=== PATIENT | male | born 1985 | race Caucasian/White ===

== ENCOUNTER 2018-03-23 11:14 | Inpatient (IN) | payer OTHER ==
[2018-03-23 12:29] VITALS: BMI 27.4
--- NOTE | 2018-03-23 15:23 | HP ---
COWS - Scale Resting Pulse: 0= [place] 80 or Below Sweatin=Flushed/Facial Moisture Restless Observation: 3= Extraneous Movement Pupil Size: 2= Moderately Dilated Bone or Joint Aches: 2= Severe Diffuse Aches Runny Nose/ Eye Tearin= Runny Nose/Eyes GI Upset > 30mins: 3= Vomiting/Diarrhea Tremor Observation: 2= Slight Tremor Visible Yawning Observation: 2= >3x During Session Anxiety or Irritability: 2=Irritable/Anxious Goose Flesh Skin: 0=Smooth Skin COWS Score: 20 Admission ROS S - HPI Chief Complaint: i need help to stop using heroin,cocaine,marijuana Allergies/Adverse Reactions: Allergies Allergy/AdvReac Type Severity Reaction Status Date / Time No Known Allergies Allergy Verified 03/23/18 12:23 History of Present Illness: this 32 years old mla ewi[facility] heroin,cocaine and marijuana dependence,seeking detox,withdrawal symptom, last detox 2017 [facility] on subxone 8 mgs/2 mgs suboxone tid last taken 03/01 did not want to be on suboxone and had letter from subscriber to so nicotine dependence anxiety insomnia longest period of sobriety 3 years Exam Limitations: No Limitations - Ebola screening Have you traveled outside of the country in the last 21 days: No Have you had contact with anyone from an Ebola affected area: No Have you been sick,other than usual withdrawal symptoms: No Do you have a fever: No - Review of Systems Constitutional: Chills, Loss of Appetite, Malaise, Night Sweats, Changes in sleep, Weakness, Unintentional Wgt. Loss EENT: reports: Tearing, Nose Congestion Respiratory: reports: No Symptoms reported Cardiac: reports: No Symptoms Reported, Palpitations GI: reports: Diarrhea, Nausea, Vomiting, Abdominal cramping Musculoskeletal: reports: No Symptoms Reported Integumentary: reports: Dryness Neuro: reports: Headache, Tremors Endocrine: reports: No Symptoms Reported Hematology: reports: No Symptoms Reported Psychiatric: reports: No Sypmtoms Reported, Judgement Intact, Mood/Affect Appropiate, Orientated x3, Anxious (insomnia) Patient History - Patient Medical History Hx Anemia: No Hx Asthma: No Hx Chronic Obstructive Pulmonary Disease (COPD): No Hx Cancer: No Hx Cardiac Disorders: No Hx Congestive Heart Failure: No Hx Hypertension: No Hx Hypercholesterolemia: No Hx Pacemaker: No HX Cerebrovascular Accident: No Hx Seizures: No Hx Dementia: No Hx Diabetes: No Hx Gastrointestinal Disorders: No Hx Liver Disease: No Hx Genitourinary Disorders: No Hx Sexually Transmitted Disorders: No Hx Renal Disease (ESRD): No Hx Thyroid Disease: No Hx Human Immunodeficiency Virus (HIV): No (o6/18 negative) Hx Hepatitis C: No Hx Depression: No Hx Suicide Attempt: No Hx Bipolar Disorder: No Hx Schizophrenia: No Other Medical History: anxiety,insomnia,no suicidal,no homicidal - Patient Surgical History Past Surgical History: No Hx Neurologic Surgery: No Hx Cataract Extraction: No Hx Cardiac Surgery: No Hx Lung Surgery: No Hx Breast Surgery: No Hx Breast Biopsy: No Hx Abdominal Surgery: No Hx Appendectomy: No Hx Cholecystectomy: No Hx Genitourinary Surgery: No Hx Section: No Hx Orthopedic Surgery: No Anesthesia Reaction: No - PPD History Previous Implant?: No Documented Results: Negative w/o proof Implanted On Prior R Admission?: No PPD to be Administered?: Yes - Smoking Cessation Smoking history: Current every day smoker Have you smoked in the past 12 months: No Aproximately how many cigarettes per day: 10 Hx Chewing Tobacco Use: No Initiated information on smoking cessation: Yes 'Breaking Loose' booklet given: 03/23/18 - Substance & Tx. History Hx Substance Use: Yes Substance Use Type: Cocaine, Heroin, Marijuana Hx Substance Use Treatment: Yes (last detox [facility] in 2017) - Substances Abused Heroin Route: Inhalation Frequency: Daily Amount used: 8BAGS- Age of first use: 20 Date of Last Use: 03/23/18 Cocaine Route: Inhalation Frequency: 1-2 times per week Amount used: 3BAGS- $60 Age of first use: 20 Date of Last Use: 03/22/18 Marijuana/Hashish Route: Smoking Frequency: 1-2 times per week Amount used: 20$ Age of first use: 14 Date of Last Use: 03/15/18 Family Disease History - Family Disease History Family History: Denies Admission Physical Exam S - Vital Signs Vital Signs: Vital Signs - 24 hr 03/23/18 12:22 Temperature 98.3 F Pulse Rate 73 Respiratory 20 Rate Blood Pressure 125/73 - Physical General Appearance: Yes: Moderate Distress, Tremorous, Irritable, Sweating, Anxious HEENTM: Yes: Normal ENT Inspection, [place], Pharynx Normal Respiratory: Yes: Lungs Clear, Normal Breath Sounds, No Respiratory Distress Neck: Yes: Within Normal Limits, Supple, Trachea in good position Breast: Yes: Within Normal Limits Cardiology: Yes: Within Normal Limits, Regular Rhythm, Regular Rate, S1, S2 Abdominal: Yes: Within Normal Limits, Normal Bowel Sounds, Non Tender, Flat, Soft Genitourinary: Yes: Within Normal Limits Back: Yes: Within Normal Limits, Normal Inspection, Muscle Spasm Musculoskeletal: Yes: Back pain, Joint Stiffness, Muscle Pain Extremities: Yes: Normal Range of Motion, Tremors, Other (carpal tunnel left wrist wearing the splint) Neurological: Yes: guest services agent II-XII NML intact, Alert, Motor Strength 5/5, Normal Mood /Affect Integumentary: Yes: Dry Lymphatic: Yes: Within Normal Limits - Diagnostic (1) Opioid dependence with withdrawal Current Visit: Yes Status: Acute (2) Cocaine dependence Current Visit: Yes Status: Chronic (3) Cannabis dependence Current Visit: Yes Status: Chronic (4) Carpal tunnel syndrome, left Current Visit: Yes Status: Chronic (5) Weight loss Current Visit: Yes Status: Chronic (6) Anxiety Current Visit: Yes Status: Chronic (7) Insomnia Current Visit: Yes Status: Chronic (8) Nicotine dependence Current Visit: Yes Status: Chronic Cleared for Admission [facility] - Detox or Rehab [facility] Level of Care: Medically Managed Detox Regimen/Protocol: Methadone [facility] Breath Alcohol Content Breath Alcohol Content: 0 Urine Drug Screen - Results Drug Screen Negative: No Urine Drug Screen Results: MARANDA-Cocaine, OPI-Opiates
[2018-03-23] MEDS ORDERED: LOPERAMIDE HCL 2 MG CAPSULE PO PRN (15:33)
[2018-03-23] MEDS ORDERED: IBUPROFEN 400 MG TABLET (FP) PO PRN (15:33)
[2018-03-23] MEDS ORDERED: METHADONE HCL 10 MG TABLET (FOR DETOX USE ONLY) PO ONE ×2 (15:33→23:00)
[2018-03-23] MEDS ORDERED: MAGNESIUM CITRATE 300 ML BOTTLE PO PRN (15:33)
[2018-03-23] MEDS ORDERED: ACETAMINOPHEN 325 MG TABLET (FP) PO PRN (15:33)
[2018-03-23] MEDS ORDERED: MENTHOL/PHENOL 1 EACH UD MM PRN (15:33)
[2018-03-23] MEDS ORDERED: guaiFENesin/D-METHORPHAN HB 10 ML UNIT-DOSE CUPS PO PRN (15:33)
[2018-03-23] MEDS ORDERED: hydrOXYzine PAMOATE 25 MG CAPSULE (FP) PO PRN (15:33)
[2018-03-23] MEDS ORDERED: MAGNESIUM HYDROX 2400MG/30ML ORAL SUSPENSION 30 ML CUP PO PRN (15:33)
[2018-03-23] MEDS ORDERED: NICOTINE POLACRILEX 2 MG GUM BUC PRN (15:33)
[2018-03-23] MEDS ORDERED: MAG HYDROX/AL HYDROX/SIMETH 30 ML UNIT-DOSE CUP PO PRN (15:33)
[2018-03-23] MEDS ORDERED: P-EPHED 60MG/TRIPROLIDI 2.5MG TABLET PO PRN (15:33)
[2018-03-23] MEDS: diazePAM 5 MG TABLET PO PRN ×2 (17:45→23:07)
[2018-03-23] MEDS: NICOTINE 21 MG/24 HOURS TOPICAL PATCH TD SCH (17:49)
[2018-03-23] MEDS ORDERED: MELATONIN 5 MG TABLETS PO PRN (22:00)
[2018-03-23 22:03] LABS: URINE APPEARANCE TURBID; URINE BILIRUBIN NEGATIVE (<2.0 mg/dL); URINE COLOR AMBER; URINE GLUCOSE (UA) NEGATIVE (NEGATIVE); URINE KETONE NEGATIVE (NEGATIVE); URINE LEUK ESTERASE NEGATIVE (NEGATIVE); URINE NITRITE NEGATIVE (NEGATIVE); URINE PROTEIN NEGATIVE (NEGATIVE); URINE UROBILINOGEN NEGATIVE mg/dL (0.2-1.0)
[2018-03-23] MEDS: THIAMINE HCL 100 MG TABLET (FP) PO SCH (23:03)
[2018-03-23] MEDS: cloNIDine HCL 0.1 MG TABLET PO SCH (23:03)
[2018-03-23] MEDS: CYCLOBENZAPRINE HCL 10 MG TABLET (FP) PO PRN (23:04)
--- NOTE | 2018-03-24 08:45 | EKG ---
Test Reason : Blood Pressure : / mmHG Vent. Rate : 070 BPM Atrial Rate : 070 BPM P-R Int : 134 ms QRS Dur : 096 ms QT Int : 390 ms P-R-T Axes : 043 069 038 degrees QTc Int : 421 ms NORMAL SINUS RHYTHM MINIMAL VOLTAGE CRITERIA FOR LVH, MAY BE NORMAL VARIANT NO PREVIOUS ECGS AVAILABLE Confirmed by GORDO CARROLL MD ([id number]) on 03/24/2018 8:45:07 AM Referred By: Confirmed By:GORDO CARROLL MD
[2018-03-24] MEDS ORDERED: METHADONE HCL 10 MG TABLET (FOR DETOX USE ONLY) PO ONE (10:00)
[2018-03-24] MEDS: PRENATAL VITAMINS W/ FOLIC ACID TABLET (FP) PO SCH (10:15)
[2018-03-24] MEDS: diazePAM 5 MG TABLET PO PRN ×2 (10:15→22:22)
[2018-03-24] MEDS: NICOTINE 21 MG/24 HOURS TOPICAL PATCH TD SCH (10:16)
[2018-03-24] MEDS: cloNIDine HCL 0.1 MG TABLET PO SCH ×2 (10:16→22:19)
[2018-03-24] MEDS: CYCLOBENZAPRINE HCL 10 MG TABLET (FP) PO PRN (10:16)
[2018-03-24 10:47] LABS: HEMOGLOBIN 13.8 GM/dL (11.7-16.9); MCH 31.9 pg (25.7-33.7); MCHC 34.5 g/dl (32.0-35.9); MEAN CELL VOLUME 92.6 fl (80-96); MEAN PLT VOLUME 8.2 fl (7.5-11.1); PLATELET COUNT 244 K/MM3 (134-434); RBC 4.32 M/mm3 (4.00-5.60); RDW 12.7 % (11.9-15.9); WHITE BLOOD COUNT 4.8 K/mm3 (4.0-10.0)
[2018-03-24 10:57] LABS: CHLORIDE 105 mmol/L (98-107); POTASSIUM 4.4 mmol/L (3.5-5.1); SODIUM 144 mmol/L (136-145)
[2018-03-24 11:09] LABS: ALBUMIN 3.8 g/dl (3.4-5.0); ALK PHOS 87 U/L (45-117); ANION GAP 6 (8-16); BILIRUBIN,TOTAL 0.3 mg/dL (0.2-1.0); BLOOD UREA NITROGEN 24 mg/dL (7-18); CALCIUM 8.7 mg/dL (8.5-10.1); CO2 33 mmol/L (21-32); CREATININE 1.5 mg/dL (0.7-1.3); GLUCOSE,RANDOM 121 mg/dL (74-106); SGOT/AST 24 U/L (15-37); SGPT/ALT 30 U/L (12-78); TOT PROT 6.9 g/dl (6.4-8.2)
--- NOTE | 2018-03-24 14:20 | PN ---
BHS COWS - Scale Resting Pulse: 1= [place] 81-100 Sweatin= Chills/Flushing Restless Observation: 0= Sits Still Pupil Size: 0= Normal to Room Light Bone or Joint Aches: 1= Mild Discomfort Runny Nose/ Eye Tearin= Nasal Congestion GI Upset > 30mins: 1= Stomach Cramp Tremor Observation of Outstretched Hands: 0= None Yawning Observation: 0= None Anxiety or Irritability: 0= None Goose Flesh Skin: 0=Smooth Skin COWS Score: 5 BHS Progress Note (SOAP) Subjective: pt lying in bed, states has no complaints, is doing well Objective: 03/24/18 14:19 Vital Signs - 24 hr 03/23/18 03/23/18 03/24/18 17:31 22:42 00:30 Temperature 98.2 F 97.9 F Pulse Rate 66 72 Respiratory 18 18 18 Rate Blood Pressure 122/68 112/88 03/24/18 03/24/18 03/24/18 03:30 06:25 10:02 Temperature 97.5 F L 98.2 F Pulse Rate 116 H 77 Respiratory 18 18 18 Rate Blood Pressure 131/62 126/80 Laboratory Tests 03/23/18 03/24/18 03/24/18 17:12 06:00 06:00 WBC 4.8 RBC 4.32 Hgb 13.8 Hct 40.0 MCV 92.6 MCH 31.9 MCHC 34.5 RDW 12.7 Plt Count 244 MPV 8.2 Sodium 144 Potassium 4.4 Chloride 105 Carbon Dioxide 33 H Anion Gap 6 L BUN 24 H Creatinine 1.5 H Creat Clearance w eGFR 53.90 Random Glucose 121 H Calcium 8.7 Total Bilirubin 0.3 AST 24 ALT 30 Alkaline Phosphatase 87 Total Protein 6.9 Albumin 3.8 Urine Color Brittany Urine Appearance Turbid Urine pH 5.0 Ur Specific [place] 1.027 Urine Protein Negative Urine Glucose (UA) Negative Urine Ketones Negative Urine Blood Negative Urine Nitrite Negative Urine Bilirubin Negative Urine Urobilinogen Negative Ur Leukocyte Esterase Negative RPR Titer 03/24/18 06:00 WBC RBC Hgb Hct MCV MCH MCHC RDW Plt Count MPV Sodium Potassium Chloride Carbon Dioxide Anion Gap BUN Creatinine Creat Clearance w eGFR Random Glucose Calcium Total Bilirubin AST ALT Alkaline Phosphatase Total Protein Albumin Urine Color Urine Appearance Urine pH Ur Specific [place] Urine Protein Urine Glucose (UA) Urine Ketones Urine Blood Urine Nitrite Urine Bilirubin Urine Urobilinogen Ur Leukocyte Esterase RPR Titer Nonreactive VS nl decreased GFR Assessment: 03/24/18 14:20 32 years old male h/o heroin,cocaine and marijuana dependence, here for opioid detox,withdrawal symptom, Plan: continue detox protocol
--- NOTE | 2018-03-24 15:59 | CONSULT ---
[facility] Psychiatric Consult - Data Date of interview: 03/24/18 Admission source: [facility] Identifying data: Patient is a 32 year old single male, father of one, unemployed, domiciled, and supported by food stamps. This is one of multiple admissions for patient. Pt. admitted to for opiate dependence. Substance Abuse History: - Smoking Cessation. Smoking history: Current every day smoker. Have you smoked in the past 12 months: No. Aproximately how many cigarettes per day: 10. Hx Chewing Tobacco Use: No. Initiated information on smoking cessation: Yes. 'Breaking Loose' booklet given: 03/23/18. - Substance & Tx. History. Hx Substance Use: Yes. Substance Use Type: Cocaine, Heroin, Marijuana. Hx Substance Use Treatment: Yes (last detox [facility] in 2017). - Substances Abused. Heroin. Route: Inhalation. Frequency: Daily. Amount used: 8BAGS-. Age of first use: 20. Date of Last Use: 03/23/18. Cocaine. Route: Inhalation. Frequency: 1-2 times per week. Amount used: 3BAGS- $60. Age of first use: 20. Date of Last Use: 03/22/18. Marijuana/Hashish. Route : Smoking. Frequency: 1-2 times per week. Amount used: 20$. Age of first use : 14. Date of Last Use: 03/15/18 Psychiatric History: Patient denies h/o psychiatric hospitalization, outpatient care, and suicide attempt. Physical/Sexual Abuse/Trauma History: Denies. Mental Status Exam - Mental Status Exam Alert and Oriented to: Time, Place, Person Cognitive Function: Good Patient Appearance: Well Groomed Mood: Withdrawn Affect: Mood Congruent Patient Behavior: Guarded Speech Pattern: Appropriate Voice Loudness: Moderately Soft/Quiet Thought Process: Goal Oriented Thought Disorder: Not Present Hallucinations: Denies Suicidal Ideation: Denies Homicidal Ideation: Denies Insight/Judgement: Poor Sleep: Fair Appetite: Good Muscle strength/Tone: Normal Gait/Station: Normal Psychiatric Findings - Problem List ([place] 1, 2,3) (1) Cocaine dependence Current Visit: Yes Status: Acute (2) Nicotine dependence Current Visit: Yes Status: Acute (3) Opioid dependence with withdrawal Current Visit: Yes Status: Acute (4) Substance induced mood disorder Current Visit: Yes Status: Acute - Initial Treatment Plan Initial Treatment Plan: Psychoeducation provided. Detoxification in progres. Observation.
[2018-03-24] MEDS: THIAMINE HCL 100 MG TABLET (FP) PO SCH (22:19)
[2018-03-25] MEDS ORDERED: METHADONE HCL 5 MG TABLET (FOR DETOX USE ONLY) PO ONE (10:00)
[2018-03-25] MEDS: PRENATAL VITAMINS W/ FOLIC ACID TABLET (FP) PO SCH (10:20)
[2018-03-25] MEDS: cloNIDine HCL 0.1 MG TABLET PO SCH ×2 (10:20→22:38)
[2018-03-25] MEDS: NICOTINE 21 MG/24 HOURS TOPICAL PATCH TD SCH (10:21)
[2018-03-25] MEDS: diazePAM 5 MG TABLET PO PRN ×3 (10:23→22:39)
[2018-03-25] MEDS: THIAMINE HCL 100 MG TABLET (FP) PO SCH (22:39)
[2018-03-25] MEDS: CYCLOBENZAPRINE HCL 10 MG TABLET (FP) PO PRN (22:39)
--- NOTE | 2018-03-25 23:20 | PN ---
BHS COWS - Scale Resting Pulse: 0= [place] 80 or Below Sweatin=Flushed/Facial Moisture Restless Observation: 1= Difficult to Sit Still BHS Progress Note (SOAP) Subjective: diarrhea Sweats Shakes Objective: A & O x 3 Sleeping, arousable to verbal stimuli No acute distress noted Assessment: withdrawal sx Plan: continue detox
[2018-03-26] MEDS ORDERED: METHADONE HCL 5 MG TABLET (FOR DETOX USE ONLY) PO ONE (10:00)
[2018-03-26] MEDS: PRENATAL VITAMINS W/ FOLIC ACID TABLET (FP) PO SCH (10:44)
[2018-03-26] MEDS: cloNIDine HCL 0.1 MG TABLET PO SCH ×2 (10:44→23:02)
[2018-03-26] MEDS: diazePAM 5 MG TABLET PO PRN (10:44)
[2018-03-26] MEDS: NICOTINE 21 MG/24 HOURS TOPICAL PATCH TD SCH (11:12)
--- NOTE | 2018-03-26 12:52 | PN ---
BHS COWS - Scale Resting Pulse: 0= [place] 80 or Below Sweatin=Flushed/Facial Moisture Restless Observation: 1= Difficult to Sit Still Pupil Size: 0= Normal to Room Light Bone or Joint Aches: 2= Severe Diffuse Aches Runny Nose/ Eye Tearin= Nasal Congestion GI Upset > 30mins: 2= Nausea/Diarrhea Tremor Observation of Outstretched Hands: 2= Slight Tremor Visible Yawning Observation: 1= 1-2x During Session Anxiety or Irritability: 2=Irritable/Anxious Goose Flesh Skin: 0=Smooth Skin COWS Score: 13 BHS Progress Note (SOAP) Subjective: Sweats, shakes, interrupted sleep, abdominal discomfort Objective: 03/26/18 12:51 Vital Signs - 8 hr 03/26/18 03/26/18 06:00 10:34 Temperature 97.5 F L 97.5 F L Pulse Rate 56 L 80 Respiratory 16 16 Rate Blood Pressure 120/69 127/72 Laboratory Last Values WBC 4.8 K/mm3 (4.0-10.0) 03/24/18 06:00 RBC 4.32 M/mm3 (4.00-5.60) 03/24/18 06:00 Hgb 13.8 GM/dL (11.7-16.9) 03/24/18 06:00 Hct 40.0 % (35.4-49) 03/24/18 06:00 MCV 92.6 fl (80-96) 03/24/18 06:00 MCH 31.9 pg (25.7-33.7) 03/24/18 06:00 MCHC 34.5 g/dl (32.0-35.9) 03/24/18 06:00 RDW 12.7 % (11.9-15.9) 03/24/18 06:00 Plt Count 244 K/MM3 (134-434) 03/24/18 06:00 MPV 8.2 fl (7.5-11.1) 03/24/18 06:00 Sodium 144 mmol/L (136-145) 03/24/18 06:00 Potassium 4.4 mmol/L (3.5-5.1) 03/24/18 06:00 Chloride 105 mmol/L (98-107) 03/24/18 06:00 Carbon Dioxide 33 mmol/L (21-32) H 03/24/18 06:00 Anion Gap 6 (8-16) L 03/24/18 06:00 BUN 24 mg/dL (7-18) H 03/24/18 06:00 Creatinine 1.5 mg/dL (0.7-1.3) H 03/24/18 06:00 Creat Clearance w eGFR 53.90 (>60) 03/24/18 06:00 Random Glucose 121 mg/dL (74-106) H 03/24/18 06:00 Calcium 8.7 mg/dL (8.5-10.1) 03/24/18 06:00 Total Bilirubin 0.3 mg/dL (0.2-1.0) 03/24/18 06:00 AST 24 U/L (15-37) 03/24/18 06:00 ALT 30 U/L (12-78) 03/24/18 06:00 Alkaline Phosphatase 87 U/L (45-117) 03/24/18 06:00 Total Protein 6.9 g/dl (6.4-8.2) 03/24/18 06:00 Albumin 3.8 g/dl (3.4-5.0) 03/24/18 06:00 Urine Color Brittany 03/23/18 17:12 Urine Appearance Turbid 03/23/18 17:12 Urine pH 5.0 (5.0-8.0) 03/23/18 17:12 Ur Specific [place] 1.027 (1.001-1.035) 03/23/18 17:12 Urine Protein Negative (NEGATIVE) 03/23/18 17:12 Urine Glucose (UA) Negative (NEGATIVE) 03/23/18 17:12 Urine Ketones Negative (NEGATIVE) 03/23/18 17:12 Urine Blood Negative (NEGATIVE) 03/23/18 17:12 Urine Nitrite Negative (NEGATIVE) 03/23/18 17:12 Urine Bilirubin Negative (<2.0 mg/dL) 03/23/18 17:12 Urine Urobilinogen Negative mg/dL (0.2-1.0) 03/23/18 17:12 Ur Leukocyte Esterase Negative (NEGATIVE) 03/23/18 17:12 RPR Titer Nonreactive (NONREACTIVE) 03/24/18 06:00 Labs noted Assessment: 03/26/18 12:51 Withdrawal sx Plan: Continue detox
[2018-03-26] MEDS: CYCLOBENZAPRINE HCL 10 MG TABLET (FP) PO PRN (21:53)
[2018-03-26] MEDS: THIAMINE HCL 100 MG TABLET (FP) PO SCH (23:02)
[2018-03-27 09:59] VITALS: BP 138/74; PULSE 65; TEMP 97.7
[2018-03-27] MEDS ORDERED: METHADONE HCL 10 MG TABLET (FOR DETOX USE ONLY) PO ONE (10:00)
[2018-03-27] MEDS: NICOTINE 21 MG/24 HOURS TOPICAL PATCH TD SCH (10:22)
[2018-03-27] MEDS: CYCLOBENZAPRINE HCL 10 MG TABLET (FP) PO PRN (10:23)
[2018-03-27] MEDS: PRENATAL VITAMINS W/ FOLIC ACID TABLET (FP) PO SCH (10:23)
[2018-03-27] MEDS: cloNIDine HCL 0.1 MG TABLET PO SCH (10:23)
--- NOTE | 2018-03-27 10:44 | PN ---
S Progress Note (SOAP) Subjective: alert,no complaint Objective: 03/27/18 10:43 Vital Signs Temperature 97.7 F 03/27/18 09:58 Pulse Rate 65 03/27/18 09:58 Respiratory Rate 20 03/27/18 09:58 Blood Pressure 138/74 03/27/18 09:58 O2 Sat by Pulse Oximetry (%) Assessment: 03/27/18 10:43 patient is stable for discharge Plan: discharge today,follow up with after care program as arrangement
--- NOTE | 2018-03-27 10:47 | DS ---
[facility] Detox Discharge Summary Admission Date: 03/23/18 Discharge Date: 03/27/18 - History Present History: Cannabis Dependence, Cocaine Dependence, Opioid Dependence Pertinent Past History: carpal tunnel left nicotine dependence weight loss insomnia - Physical Exam Results Vital Signs: Vital Signs Temperature 97.7 F 03/27/18 09:58 Pulse Rate 65 03/27/18 09:58 Respiratory Rate 20 03/27/18 09:58 Blood Pressure 138/74 03/27/18 09:58 O2 Sat by Pulse Oximetry (%) Pertinent Admission Physical Exam Findings: withdrawal symptom Laboratory Last Values WBC 4.8 K/mm3 (4.0-10.0) 03/24/18 06:00 RBC 4.32 M/mm3 (4.00-5.60) 03/24/18 06:00 Hgb 13.8 GM/dL (11.7-16.9) 03/24/18 06:00 Hct 40.0 % (35.4-49) 03/24/18 06:00 MCV 92.6 fl (80-96) 03/24/18 06:00 MCH 31.9 pg (25.7-33.7) 03/24/18 06:00 MCHC 34.5 g/dl (32.0-35.9) 03/24/18 06:00 RDW 12.7 % (11.9-15.9) 03/24/18 06:00 Plt Count 244 K/MM3 (134-434) 03/24/18 06:00 MPV 8.2 fl (7.5-11.1) 03/24/18 06:00 Sodium 144 mmol/L (136-145) 03/24/18 06:00 Potassium 4.4 mmol/L (3.5-5.1) 03/24/18 06:00 Chloride 105 mmol/L (98-107) 03/24/18 06:00 Carbon Dioxide 33 mmol/L (21-32) H 03/24/18 06:00 Anion Gap 6 (8-16) L 03/24/18 06:00 BUN 24 mg/dL (7-18) H 03/24/18 06:00 Creatinine 1.5 mg/dL (0.7-1.3) H 03/24/18 06:00 Creat Clearance w eGFR 53.90 (>60) 03/24/18 06:00 Random Glucose 121 mg/dL (74-106) H 03/24/18 06:00 Calcium 8.7 mg/dL (8.5-10.1) 03/24/18 06:00 Total Bilirubin 0.3 mg/dL (0.2-1.0) 03/24/18 06:00 AST 24 U/L (15-37) 03/24/18 06:00 ALT 30 U/L (12-78) 03/24/18 06:00 Alkaline Phosphatase 87 U/L (45-117) 03/24/18 06:00 Total Protein 6.9 g/dl (6.4-8.2) 03/24/18 06:00 Albumin 3.8 g/dl (3.4-5.0) 03/24/18 06:00 Urine Color Brittany 03/23/18 17:12 Urine Appearance Turbid 03/23/18 17:12 Urine pH 5.0 (5.0-8.0) 03/23/18 17:12 Ur Specific [place] 1.027 (1.001-1.035) 03/23/18 17:12 Urine Protein Negative (NEGATIVE) 03/23/18 17:12 Urine Glucose (UA) Negative (NEGATIVE) 03/23/18 17:12 Urine Ketones Negative (NEGATIVE) 03/23/18 17:12 Urine Blood Negative (NEGATIVE) 03/23/18 17:12 Urine Nitrite Negative (NEGATIVE) 03/23/18 17:12 Urine Bilirubin Negative (<2.0 mg/dL) 03/23/18 17:12 Urine Urobilinogen Negative mg/dL (0.2-1.0) 03/23/18 17:12 Ur Leukocyte Esterase Negative (NEGATIVE) 03/23/18 17:12 RPR Titer Nonreactive (NONREACTIVE) 03/24/18 06:00 Vital Signs Temperature 97.7 F 03/27/18 09:58 Pulse Rate 65 03/27/18 09:58 Respiratory Rate 20 03/27/18 09:58 Blood Pressure 138/74 03/27/18 09:58 O2 Sat by Pulse Oximetry (%) - Treatment Hospital Course: Detox Protocol Followed, Detoxed Safely, Responded well, Discharged Condition Good Patient has Accepted a Rehab Referral to: declined - Medication Discharge Medications: Ambulatory Orders NK [No Known Home Medication] 03/07/18 - Diagnosis (1) Opioid dependence with withdrawal Current Visit: Yes Status: Acute (2) Cocaine dependence Current Visit: Yes Status: Chronic (3) Cannabis dependence Current Visit: Yes Status: Chronic (4) Carpal tunnel syndrome, left Current Visit: Yes Status: Chronic (5) Weight loss Current Visit: Yes Status: Chronic (6) Anxiety Current Visit: Yes Status: Chronic (7) Insomnia Current Visit: Yes Status: Chronic (8) Nicotine dependence Current Visit: Yes Status: Chronic - AMA Did Patient Leave Against Medical Advice: No
[2018-03-28] MEDS ORDERED: METHADONE HCL 5 MG TABLET (FOR DETOX USE ONLY) PO ONE (06:00)
== END 2018-03-27 11:32 | disposition home or self-care (01) | DRG 773 ==
LOC: YASAS 11:14 → Y6N 15:34
PROVIDERS: ADMIT Surgery; ATTEND Surgery
PROC: HZ2ZZZZ Detoxification Services for Substance Abuse Treatment (ICD-10-PCS; principal; 2018-03-23)
DX: F11.23 Opioid dependence with withdrawal (principal); F14.20 Cocaine dependence, uncomplicated; F12.20 Cannabis dependence, uncomplicated; F17.210 Nicotine dependence, cigarettes, uncomplicated; F41.9 Anxiety disorder, unspecified; F19.24 Other psychoactive substance dependence with psychoactive substance-induced mood disorder; G47.00 Insomnia, unspecified; G56.02 Carpal tunnel syndrome, left upper limb; Z87.898 Personal history of other specified conditions
CPT/HCPCS: 36415; 80053; 81003; 85027; 86593; 93005; 93010; J0735

== ENCOUNTER 2018-06-30 14:32 | Inpatient (IN) | payer OTHER ==
[2018-06-30 16:49] VITALS: BMI 28.8
--- NOTE | 2018-06-30 17:53 | HP ---
COWS - Scale Resting Pulse: 0= [place] 80 or Below Sweatin= Chills/Flushing Restless Observation: 5= Unable to Sit Still Pupil Size: 0= Normal to Room Light Bone or Joint Aches: 4=Acute Joint/Muscle Pain Runny Nose/ Eye Tearin= Runny Nose/Eyes GI Upset > 30mins: 2= Nausea/Diarrhea Tremor Observation: 0= None Yawning Observation: 0= None Anxiety or Irritability: 4=Extreme Anxiety Goose Flesh Skin: 0=Smooth Skin COWS Score: 18 CIWA Score - Admission Criteria OASAS Guidelines: Admission for Medically Managed Detox: Requires at least one of the followin. CIWA greater than 12 2. Seizures within the past 24 hours 3. Delirium tremens within the past 24 hours 4. Hallucinations within the past 24 hours 5. Acute intervention needed for co occurring medical disorder 6. Acute intervention needed for co occurring psychiatric disorder 7. Severe withdrawal that cannot be handled at a lower level of care (continued vomiting, continued diarrhea, abnormal vital signs) requiring intravenous medication and/or fluids 8. Admission ROS [facility] Chief Complaint: SEEKING DETOX FOR C/O WITHDRAWAL SX'S FROM HEROIN Allergies/Adverse Reactions: Allergies Allergy/AdvReac Type Severity Reaction Status Date / Time No Known Allergies Allergy Verified 06/30/18 17:08 History of Present Illness: 32 Y.O. MALE WITH HX/O OPIOID DEPENDENCE AND CANNABIS, COCAINE ABUSE HERE FOR DETOX. CLIENT IS KNOWN TO THIS PROGRAM. LAST HERE 03/2018. HE IS SELF REFERRED. DENIES ANY SIGNIFICANT CLEAN TIME IN THE PAST YEAR. DENIES SI/HI, AVH AND HX/O DRUG OVERDOSE, SEIZURE D/O. CURRETLY RESDIES WITH FAMILY. HE IS CURRENTLY ON PAROLE. PMHX- DENIES PSYCH- DENIES Exam Limitations: No Limitations - Ebola screening Have you traveled outside of the country in the last 21 days: No Have you had contact with anyone from an Ebola affected area: No Have you been sick,other than usual withdrawal symptoms: No Do you have a fever: No - Review of Systems Constitutional: Chills, Malaise, Night Sweats, Changes in sleep EENT: reports: No Symptoms Reported Respiratory: reports: No Symptoms reported Cardiac: reports: No Symptoms Reported GI: reports: Nausea : reports: No Symptoms Reported Musculoskeletal: reports: Back Pain Integumentary: reports: No Symptoms Reported Neuro: reports: No Symptoms reported Endocrine: reports: No Symptoms Reported Hematology: reports: No Symptoms Reported Psychiatric: reports: Anxious Other Systems: Reviewed and Negative Patient History - Patient Medical History Hx Anemia: No Hx Asthma: No Hx Chronic Obstructive Pulmonary Disease (COPD): No Hx Cancer: No Hx Cardiac Disorders: No Hx Congestive Heart Failure: No Hx Hypertension: No Hx Hypercholesterolemia: No Hx Pacemaker: No HX Cerebrovascular Accident: No Hx Seizures: No Hx Dementia: No Hx Diabetes: No Hx Gastrointestinal Disorders: No Hx Liver Disease: No Hx Genitourinary Disorders: No Hx Sexually Transmitted Disorders: No Hx Renal Disease (ESRD): No Hx Thyroid Disease: No Hx Human Immunodeficiency Virus (HIV): No Hx Hepatitis C: No Hx Depression: No Hx Suicide Attempt: No Hx Bipolar Disorder: No Hx Schizophrenia: No Other Medical History: DENIES - Patient Surgical History Past Surgical History: No Hx Neurologic Surgery: No Hx Cataract Extraction: No Hx Cardiac Surgery: No Hx Lung Surgery: No Hx Breast Surgery: No Hx Breast Biopsy: No Hx Abdominal Surgery: No Hx Appendectomy: No Hx Cholecystectomy: No Hx Genitourinary Surgery: No Hx Section: No Hx Orthopedic Surgery: No Anesthesia Reaction: No - PPD History Previous Implant?: Yes Documented Results: Negative w/proof Implanted On Prior [facility] Admission?: No Date: 03/25/18 Results: 0MM PPD to be Administered?: No - Smoking Cessation Smoking history: Current every day smoker Have you smoked in the past 12 months: No Aproximately how many cigarettes per day: 10 Cigars Per Day: 0 Hx Chewing Tobacco Use: No Initiated information on smoking cessation: Yes 'Breaking Loose' booklet given: 06/30/18 - Substance & Tx. History Hx Alcohol Use: No Hx Substance Use: Yes Substance Use Type: Cocaine, Heroin, Marijuana Hx Substance Use Treatment: Yes ([facility]) - Substances Abused Cocaine Route: Oral Frequency: 1-2 times per week Amount used: 1 GRAM Age of first use: 17 Date of Last Use: 06/30/18 Heroin Route: SNIFF Frequency: Daily Amount used: 8 BAGS Age of first use: 19 Date of Last Use: 06/30/18 THC Route: Smoking Frequency: 1-3 times last 30 days Amount used: 1GM Age of first use: 14 Date of Last Use: 06/16/18 Family Disease History - Family Disease History Family History: Denies Admission Physical Exam [facility] - Vital Signs Vital Signs: Vital Signs - 24 hr 06/30/18 16:47 Temperature 98.4 F Pulse Rate 73 Respiratory 20 Rate Blood Pressure 131/69 - Physical General Appearance: Yes: Appropriately Dressed, Mild Distress, Tremorous, Anxious HEENTM: Yes: EOMI, Normocephalic, Normal Voice, [place], Pharynx Normal, Rhinorrhea Respiratory: Yes: Chest Non-Tender, Lungs Clear, Normal Breath Sounds, No Respiratory Distress, No Accessory Muscle Use Neck: Yes: No masses,lesions,Nodules, Supple, Trachea in good position Breast: Yes: Breast Exam Deferred Cardiology: Yes: Regular Rhythm, Regular Rate, S1, S2 Abdominal: Yes: Normal Bowel Sounds, Non Tender, Soft Genitourinary: Yes: Within Normal Limits (NO C/O) Back: Yes: Normal Inspection Musculoskeletal: Yes: full range of Motion, Gait Steady Extremities: Yes: Normal Capillary Refill, Normal Inspection, Normal Range of Motion, Non-Tender Neurological: Yes: Fully Oriented, Alert, Motor Strength 5/5 Integumentary: Yes: Warm, Cold Lymphatic: Yes: Within Normal Limits - Diagnostic (1) Opioid dependence with withdrawal Current Visit: Yes Status: Acute (2) Anxiety Current Visit: Yes Status: Chronic (3) Cannabis dependence Current Visit: Yes Status: Chronic (4) Cocaine dependence Current Visit: Yes Status: Chronic Qualifiers: Substance use status: uncomplicated Qualified Code(s): F14.20 - Cocaine dependence, uncomplicated (5) Insomnia Current Visit: Yes Status: Chronic Qualifiers: Insomnia type: drug-induced Qualified Code(s): F19.982 - Other psychoactive substance use, unspecified with psychoactive substance-induced sleep disorder (6) Nicotine dependence Current Visit: Yes Status: Chronic Qualifiers: Nicotine product type: cigarettes Substance use status: uncomplicated Qualified Code(s): F17.210 - Nicotine dependence, cigarettes, uncomplicated Cleared for Admission [facility] - Detox or Rehab [facility] Level of Care: Medically Managed Detox Regimen/Protocol: Methadone Claeared for Rehab Admission: No S Breath Alcohol Content Breath Alcohol Content: 0 Urine Drug Screen - Results Drug Screen Negative: No Urine Drug Screen Results: THC-Marijuana, MARANDA-Cocaine, OPI-Opiates, OXY- Oxycodone, FEN-Fentanyl
[2018-06-30] MEDS ORDERED: ACETAMINOPHEN 325 MG TABLET (FP) PO PRN (18:05)
[2018-06-30] MEDS ORDERED: MAGNESIUM HYDROX 2400MG/30ML ORAL SUSPENSION 30 ML CUP PO PRN (18:05)
[2018-06-30] MEDS ORDERED: LOPERAMIDE HCL 2 MG CAPSULE PO PRN (18:05)
[2018-06-30] MEDS ORDERED: P-EPHED 60MG/TRIPROLIDI 2.5MG TABLET PO PRN (18:05)
[2018-06-30] MEDS ORDERED: NICOTINE POLACRILEX 2 MG GUM BC PRN (18:05)
[2018-06-30] MEDS ORDERED: MAG HYDROX/AL HYDROX/SIMETH 30 ML UNIT-DOSE CUP PO PRN (18:05)
[2018-06-30] MEDS ORDERED: guaiFENesin/D-METHORPHAN HB 10 ML UNIT-DOSE CUPS PO PRN (18:05)
[2018-06-30] MEDS ORDERED: IBUPROFEN 400 MG TABLET (FP) PO PRN (18:05)
[2018-06-30] MEDS ORDERED: MAGNESIUM CITRATE 300 ML BOTTLE PO PRN (18:05)
[2018-06-30] MEDS ORDERED: MENTHOL/PHENOL 1 EACH UD MM PRN (18:05)
[2018-06-30] MEDS ORDERED: METHADONE HCL 10 MG TABLET (FOR DETOX USE ONLY) PO ONE ×2 (18:45→23:00)
[2018-06-30] MEDS: diazePAM 5 MG TABLET PO PRN (21:01)
[2018-07-01] MEDS: THIAMINE HCL 100 MG TABLET (FP) PO SCH ×2 (00:19→22:30)
[2018-07-01] MEDS ORDERED: METHADONE HCL 10 MG TABLET (FOR DETOX USE ONLY) PO ONE (10:00)
--- NOTE | 2018-07-01 10:16 | PN ---
[facility] COWS - Scale Resting Pulse: 0= [place] 80 or Below Sweatin= Chills/Flushing Restless Observation: 1= Difficult to Sit Still Pupil Size: 0= Normal to Room Light Bone or Joint Aches: 2= Severe Diffuse Aches Runny Nose/ Eye Tearin= Nasal Congestion GI Upset > 30mins: 2= Nausea/Diarrhea Tremor Observation of Outstretched Hands: 2= Slight Tremor Visible Yawning Observation: 0= None Anxiety or Irritability: 2=Irritable/Anxious Goose Flesh Skin: 0=Smooth Skin COWS Score: 11 [facility] Progress Note (SOAP) Subjective: Back pain, interrupted sleep, generalized weakness and irritability Objective: 07/01/18 10:14 Vital Signs 07/01/18 07/01/18 07/01/18 03:30 06:00 09:19 Temperature 97.4 F L 97.9 F Pulse Rate 67 82 Respiratory 16 18 18 Rate Blood Pressure 144/84 148/70 Labs pending No apparent distress Assessment: 07/01/18 10:15 Withdrawal sx Plan: Continue detox
[2018-07-01] MEDS: diazePAM 5 MG TABLET PO PRN ×3 (10:32→20:10)
[2018-07-01] MEDS: PRENATAL VITAMINS W/ FOLIC ACID TABLET (FP) PO SCH (10:32)
[2018-07-01] MEDS: NICOTINE 14 MG/24 HOURS TOPICAL PATCH TD SCH (10:34)
[2018-07-01 10:51] LABS: HEMATOCRIT 43.1 % (35.4-49); HEMOGLOBIN 14.1 GM/dL (11.7-16.9); MCH 30.5 pg (25.7-33.7); MCHC 32.7 g/dl (32.0-35.9); MEAN CELL VOLUME 93.3 fl (80-96); MEAN PLT VOLUME 7.9 fl (7.5-11.1); PLATELET COUNT 245 K/MM3 (134-434); RBC 4.62 M/mm3 (4.00-5.60); WHITE BLOOD COUNT 4.7 K/mm3 (4.0-10.0)
[2018-07-01 11:00] LABS: ALBUMIN 3.3 g/dl (3.4-5.0); ALK PHOS 71 U/L (45-117); ANION GAP 7 MMOL/L (8-16); BILIRUBIN,TOTAL 0.4 mg/dL (0.2-1); BLOOD UREA NITROGEN 21 mg/dL (7-18); CALCIUM 8.3 mg/dL (8.5-10.1); CHLORIDE 106 mmol/L (98-107); CO2 29 mmol/L (21-32); CREATININE 1.1 mg/dL (0.55-1.3); GLUCOSE,RANDOM 80 mg/dL (74-106); POTASSIUM 4.1 mmol/L (3.5-5.1); SGOT/AST 10 U/L (15-37); SGPT/ALT 19 U/L (13-61); SODIUM 142 mmol/L (136-145); TOT PROT 6.1 g/dl (6.4-8.2)
--- NOTE | 2018-07-01 13:42 | CONSULT ---
[facility] Psychiatric Consult - Data Date of interview: 07/01/18 Admission source: [facility] Identifying data: Readmission to [facility] for this 32 y/o male seeking detoxification treatment, on , for heroin and cocaine dependence. Patient is single, a father of one, domiciled, currently unemployed but supported on odd jobs. Substance Abuse History: Confirmed by the patient in this interview. Details in current [facility] report : Smoking history: Current every day smoker. Have you smoked in the past 12 months: No. Aproximately how many cigarettes per day: 10. Cigars Per Day: 0. Hx Chewing Tobacco Use: No. Initiated information on smoking cessation: Yes. 'Breaking Loose' booklet given: 06/30/18. - Substance & Tx. History. Hx Alcohol Use: No. Hx Substance Use: Yes. Substance Use Type : Cocaine, Heroin, Marijuana. Hx Substance Use Treatment: Yes ([facility]). - Substances Abused. Cocaine. Route: Oral. Frequency: 1-2 times per week. Amount used: 1 GRAM. Age of first use: 17. Date of Last Use: 06/30/18. Heroin. Route: SNIFF. Frequency: Daily. Amount used: 8 BAGS. Age of first use: 19. Date of Last Use: 06/30/18. THC. Route: Smoking. Frequency: 1-3 times last 30 days. Amount used: 1GM. Age of first use: 14. Date of Last Use : 06/16/18 Medical History: Patient endorses good general health. Psychiatric History: Patient denies. Physical/Sexual Abuse/Trauma History: No history. Additional Comment: Urine Drug Screen Results: THC-Marijuana, MARANDA-Cocaine, OPI- Opiates, OXY-Oxycodone, FEN-Fentanyl. Noted. Psychiatric Findings - Problem List ([place] 1, 2,3) (1) Opioid dependence with withdrawal Current Visit: Yes Status: Acute (2) Cannabis dependence Current Visit: Yes Status: Chronic (3) Cocaine dependence Current Visit: Yes Status: Chronic Qualifiers: Substance use status: uncomplicated Qualified Code(s): F14.20 - Cocaine dependence, uncomplicated (4) Nicotine dependence Current Visit: Yes Status: Chronic Qualifiers: Nicotine product type: cigarettes Substance use status: uncomplicated Qualified Code(s): F17.210 - Nicotine dependence, cigarettes, uncomplicated (5) Insomnia Current Visit: Yes Status: Acute Qualifiers: Insomnia type: drug-induced Qualified Code(s): F19.982 - Other psychoactive substance use, unspecified with psychoactive substance-induced sleep disorder - Initial Treatment Plan Initial Treatment Plan: Psychoeducation. Sleep hygiene. Detoxification in progress. Insomnia is addressed with melatonin at bedtime (patient's specific request). Side effects/benefits revisited. Observation.
[2018-07-01] MEDS: MELATONIN 5 MG TABLETS PO PRN (22:30)
[2018-07-02] MEDS: diazePAM 5 MG TABLET PO PRN ×5 (00:35→19:37)
[2018-07-02] MEDS ORDERED: METHADONE HCL 5 MG TABLET (FOR DETOX USE ONLY) PO ONE (10:00)
[2018-07-02] MEDS: PRENATAL VITAMINS W/ FOLIC ACID TABLET (FP) PO SCH (10:25)
[2018-07-02] MEDS: NICOTINE 14 MG/24 HOURS TOPICAL PATCH TD SCH (10:27)
--- NOTE | 2018-07-02 15:44 | PN ---
[facility] COWS - Scale Resting Pulse: 0= [place] 80 or Below Sweatin= Chills/Flushing Restless Observation: 1= Difficult to Sit Still Pupil Size: 1= Pupils >than Normal Bone or Joint Aches: 1= Mild Discomfort Runny Nose/ Eye Tearin= Nasal Congestion GI Upset > 30mins: 1= Stomach Cramp Tremor Observation of Outstretched Hands: 1= Tremor [place], Not Seen Yawning Observation: 1= 1-2x During Session Anxiety or Irritability: 1=Feels Anxious/Irritable Goose Flesh Skin: 0=Smooth Skin COWS Score: 9 [facility] Progress Note (SOAP) Subjective: body ache muscle cramp trouble sleep at night Objective: 07/02/18 15:45 Vital Signs Temperature 98.2 F 07/02/18 13:50 Pulse Rate 80 07/02/18 13:50 Respiratory Rate 18 07/02/18 13:50 Blood Pressure 143/71 07/02/18 13:50 O2 Sat by Pulse Oximetry (%) Laboratory Last Values WBC 4.7 K/mm3 (4.0-10.0) 07/01/18 08:00 RBC 4.62 M/mm3 (4.00-5.60) 07/01/18 08:00 Hgb 14.1 GM/dL (11.7-16.9) 07/01/18 08:00 Hct 43.1 % (35.4-49) 07/01/18 08:00 MCV 93.3 fl (80-96) 07/01/18 08:00 MCH 30.5 pg (25.7-33.7) 07/01/18 08:00 MCHC 32.7 g/dl (32.0-35.9) 07/01/18 08:00 RDW 13.0 % (11.9-15.9) 07/01/18 08:00 Plt Count 245 K/MM3 (134-434) 07/01/18 08:00 MPV 7.9 fl (7.5-11.1) 07/01/18 08:00 Sodium 142 mmol/L (136-145) 07/01/18 08:00 Potassium 4.1 mmol/L (3.5-5.1) 07/01/18 08:00 Chloride 106 mmol/L (98-107) 07/01/18 08:00 Carbon Dioxide 29 mmol/L (21-32) 07/01/18 08:00 Anion Gap 7 MMOL/L (8-16) L 07/01/18 08:00 BUN 21 mg/dL (7-18) H 07/01/18 08:00 Creatinine 1.1 mg/dL (0.55-1.3) 07/01/18 08:00 Creat Clearance w eGFR > 60 (>60) 07/01/18 08:00 Random Glucose 80 mg/dL (74-106) 07/01/18 08:00 Calcium 8.3 mg/dL (8.5-10.1) L 07/01/18 08:00 Total Bilirubin 0.4 mg/dL (0.2-1) 07/01/18 08:00 AST 10 U/L (15-37) L 07/01/18 08:00 ALT 19 U/L (13-61) 07/01/18 08:00 Alkaline Phosphatase 71 U/L (45-117) 07/01/18 08:00 Total Protein 6.1 g/dl (6.4-8.2) L 07/01/18 08:00 Albumin 3.3 g/dl (3.4-5.0) L 07/01/18 08:00 RPR Titer Nonreactive (NONREACTIVE) 07/01/18 08:00 lab noted Assessment: 07/02/18 15:46 withdrawal sx Plan: continue detox
[2018-07-02] MEDS: MELATONIN 5 MG TABLETS PO PRN (22:36)
[2018-07-02] MEDS: THIAMINE HCL 100 MG TABLET (FP) PO SCH (22:36)
[2018-07-03] MEDS: diazePAM 5 MG TABLET PO PRN ×2 (06:08→10:12)
[2018-07-03 09:14] VITALS: BP 130/65; PULSE 78; TEMP 98.2
--- NOTE | 2018-07-03 09:43 | PN ---
[facility] Progress Note (SOAP) Subjective: body aches muscle cramp tremor sweat gi distress encourage maalox prn Objective: 07/03/18 09:42 Vital Signs Temperature 98.2 F 07/03/18 09:13 Pulse Rate 78 07/03/18 09:13 Respiratory Rate 18 07/03/18 09:13 Blood Pressure 130/65 07/03/18 09:13 O2 Sat by Pulse Oximetry (%) Laboratory Last Values WBC 4.7 K/mm3 (4.0-10.0) 07/01/18 08:00 RBC 4.62 M/mm3 (4.00-5.60) 07/01/18 08:00 Hgb 14.1 GM/dL (11.7-16.9) 07/01/18 08:00 Hct 43.1 % (35.4-49) 07/01/18 08:00 MCV 93.3 fl (80-96) 07/01/18 08:00 MCH 30.5 pg (25.7-33.7) 07/01/18 08:00 MCHC 32.7 g/dl (32.0-35.9) 07/01/18 08:00 RDW 13.0 % (11.9-15.9) 07/01/18 08:00 Plt Count 245 K/MM3 (134-434) 07/01/18 08:00 MPV 7.9 fl (7.5-11.1) 07/01/18 08:00 Sodium 142 mmol/L (136-145) 07/01/18 08:00 Potassium 4.1 mmol/L (3.5-5.1) 07/01/18 08:00 Chloride 106 mmol/L (98-107) 07/01/18 08:00 Carbon Dioxide 29 mmol/L (21-32) 07/01/18 08:00 Anion Gap 7 MMOL/L (8-16) L 07/01/18 08:00 BUN 21 mg/dL (7-18) H 07/01/18 08:00 Creatinine 1.1 mg/dL (0.55-1.3) 07/01/18 08:00 Creat Clearance w eGFR > 60 (>60) 07/01/18 08:00 Random Glucose 80 mg/dL (74-106) 07/01/18 08:00 Calcium 8.3 mg/dL (8.5-10.1) L 07/01/18 08:00 Total Bilirubin 0.4 mg/dL (0.2-1) 07/01/18 08:00 AST 10 U/L (15-37) L 07/01/18 08:00 ALT 19 U/L (13-61) 07/01/18 08:00 Alkaline Phosphatase 71 U/L (45-117) 07/01/18 08:00 Total Protein 6.1 g/dl (6.4-8.2) L 07/01/18 08:00 Albumin 3.3 g/dl (3.4-5.0) L 07/01/18 08:00 RPR Titer Nonreactive (NONREACTIVE) 07/01/18 08:00 lab noted Assessment: 07/03/18 09:43 withdrawal sx Plan: continue detox
[2018-07-03] MEDS ORDERED: METHADONE HCL 5 MG TABLET (FOR DETOX USE ONLY) PO ONE (10:00)
[2018-07-03] MEDS: NICOTINE 14 MG/24 HOURS TOPICAL PATCH TD SCH (10:12)
[2018-07-03] MEDS: PRENATAL VITAMINS W/ FOLIC ACID TABLET (FP) PO SCH (10:12)
--- NOTE | 2018-07-03 10:48 | PN ---
[facility] Progress Note Note: pt did not want to complete detox. pt refused any aftercare. pt signed out AMA.
--- NOTE | 2018-07-03 10:49 | DS ---
[facility] Detox Discharge Summary Admission Date: 06/30/18 - History Present History: Cannabis Dependence, Cocaine Dependence, Opioid Dependence - Physical Exam Results Vital Signs: Vital Signs Temperature 98.2 F 07/03/18 09:13 Pulse Rate 78 07/03/18 09:13 Respiratory Rate 18 07/03/18 09:13 Blood Pressure 130/65 07/03/18 09:13 O2 Sat by Pulse Oximetry (%) - Treatment Hospital Course: Discharged Condition Good - Medication Discharge Medications: Ambulatory Orders NK [No Known Home Medication] 03/07/18 - Diagnosis (1) Insomnia Current Visit: Yes Status: Acute Qualifiers: Insomnia type: drug-induced Qualified Code(s): F19.982 - Other psychoactive substance use, unspecified with psychoactive substance-induced sleep disorder (2) Opioid dependence with withdrawal Current Visit: Yes Status: Acute (3) Anxiety Current Visit: Yes Status: Chronic (4) Cannabis dependence Current Visit: Yes Status: Chronic (5) Cocaine dependence Current Visit: Yes Status: Chronic Qualifiers: Substance use status: uncomplicated Qualified Code(s): F14.20 - Cocaine dependence, uncomplicated (6) Nicotine dependence Current Visit: Yes Status: Chronic Qualifiers: Nicotine product type: cigarettes Substance use status: uncomplicated Qualified Code(s): F17.210 - Nicotine dependence, cigarettes, uncomplicated (7) Substance induced mood disorder Current Visit: No Status: Acute (8) Carpal tunnel syndrome, left Current Visit: No Status: Chronic (9) Weight loss Current Visit: No Status: Chronic - AMA Did Patient Leave Against Medical Advice: Yes (going home. )
[2018-07-03 17:12] LABS: URINE APPEARANCE CLEAR; URINE BILIRUBIN NEGATIVE (<2.0 mg/dL); URINE COLOR STRAW; URINE GLUCOSE (UA) NEGATIVE (NEGATIVE); URINE KETONE NEGATIVE (NEGATIVE); URINE LEUK ESTERASE NEGATIVE (NEGATIVE); URINE NITRITE NEGATIVE (NEGATIVE); URINE PROTEIN NEGATIVE (NEGATIVE); URINE UROBILINOGEN NEGATIVE mg/dL (0.2-1.0)
--- NOTE | 2018-07-03 23:55 | EKG ---
Test Reason : Blood Pressure : / mmHG Vent. Rate : 086 BPM Atrial Rate : 086 BPM P-R Int : 128 ms QRS Dur : 094 ms QT Int : 370 ms P-R-T Axes : 057 067 025 degrees QTc Int : 442 ms NORMAL SINUS RHYTHM MODERATE VOLTAGE CRITERIA FOR LVH, MAY BE NORMAL VARIANT BORDERLINE ECG WHEN COMPARED WITH ECG OF 23-MAR-2018 16:57, NO SIGNIFICANT CHANGE WAS FOUND Confirmed by MARNI HINTON MD ([id number]) on 07/03/2018 11:55:06 PM Referred By: Confirmed By:MARNI HINTON MD
[2018-07-04] MEDS ORDERED: METHADONE HCL 10 MG TABLET (FOR DETOX USE ONLY) PO ONE (10:00)
[2018-07-05] MEDS ORDERED: METHADONE HCL 5 MG TABLET (FOR DETOX USE ONLY) PO ONE (06:00)
== END 2018-07-03 10:45 | disposition left against medical advice (07) | DRG 770 ==
LOC: YASAS 14:32 → Y6N 18:25
PROC: HZ2ZZZZ Detoxification Services for Substance Abuse Treatment (ICD-10-PCS; principal; 2018-06-30)
DX: F11.23 Opioid dependence with withdrawal (principal); F14.20 Cocaine dependence, uncomplicated; F12.20 Cannabis dependence, uncomplicated; F17.210 Nicotine dependence, cigarettes, uncomplicated; F19.24 Other psychoactive substance dependence with psychoactive substance-induced mood disorder; F19.282 Other psychoactive substance dependence with psychoactive substance-induced sleep disorder; F41.9 Anxiety disorder, unspecified; G56.02 Carpal tunnel syndrome, left upper limb; R63.4 Abnormal weight loss; Z68.28 Body mass index [BMI] 28.0-28.9, adult
CPT/HCPCS: 36415; 80053; 81003; 85027; 86593; 93005; 93010